=== PATIENT | female | born 1960 | race Caucasian/White ===

== ENCOUNTER 2017-12-17 05:57 | Emergency (ER) | payer OTHER ==
[2017-12-17] MEDS ORDERED: ACETAMINOPHEN 500 MG 500 MG TAB PO ONE (06:03)
[2017-12-17] MEDS ORDERED: IBUPROFEN 400 MG TAB PO ONE (06:03)
[2017-12-17] MEDS ORDERED: IBUPROFEN 400 MG TAB ONE (06:05)
[2017-12-17] MEDS ORDERED: ACETAMINOPHEN 500 MG 500 MG TAB ONE (06:05)
[2017-12-17 06:12] VITALS: TEMP 97.2
[2017-12-17 07:07] VITALS: BP 145/73; PULSE 76; RESP 16; O2SAT 96
== END 2017-12-17 06:50 | disposition home or self-care (01) | DRG 605 ==
LOC: ED 05:57
DX: S40.021A Contusion of right upper arm, initial encounter (principal); W19.XXXA Unspecified fall, initial encounter; S46.811A Strain of other muscles, fascia and tendons at shoulder and upper arm level, right arm, initial encounter
CPT/HCPCS: 73060; 99282; 99283; A9270-GY